=== PATIENT | female | born 1970 | race Caucasian/White ===

== ENCOUNTER 2016-05-11 18:06 | Emergency (ER) | payer MEDICAID ==
[~2016-05-11] VITALS: Ht 162.6 cm; Wt 118.5 kg
[2016-05-11 18:42] VITALS: Ht 162.6 cm; Wt 118.5 kg
[2016-05-11] MEDS ORDERED: KETOROLAC 30 MG INJ IM STA (19:33)
--- NOTE | 2016-05-11 20:03 | ERD ---
ER Documentation Chief Complaint Date/Time DATE: 05/11/16 TIME: 19:59 Chief Complaint LOWER BACK PAIN X 1 DAY S/P BENDING; LAST IBUPROFEN AT 1100 TODAY. HPI Patient is a 46-year-old female who presents to the ED with low back pain that started yesterday. She states that she was bending down to pick something up and felt pain in her low back and spasm going up her back. She denies saddle anesthesia, denies bowel or bladder incontinence. Denies chest pain, cough, shortness of breath or difficulty breathing. Denies abdominal pain, nausea, vomiting or diarrhea. Denies radiation of pain down her legs. Denies neck pain or headache. She has not taken anything for her symptoms. She states that this has happened to her before, about 10 years ago. She denies weakness or difficulty walking. ROS All systems reviewed and are negative except as per history of present illness. Medications Home Meds Active Scripts Orphenadrine Citrate (Norflex) 100 Mg Tablet.sa, 100 MG PO BID for 10 Days, TAB.SA Prov:ELLIOTT ASHBY PA-C 05/11/16 Hydrocodone/Acetaminophen (Lenox 5-325 Tablet) 1 Each Tablet, 1 TAB PO Q6H Y for PAIN, #7 TAB Prov:ELLIOTT ASHBY PA-C 05/11/16 Allergies Allergies: Coded Allergies: No Known Allergy (Unverified , 05/11/16) PMhx/Soc History of Surgery: Yes () Anesthesia Reaction: No Hx Neurological Disorder: Yes ("SLIPPED DISC IN SPINE"; CHRONIC PAIN) Hx Respiratory Disorders: Yes (ASTHMA) Hx Cardiac Disorders: Yes (HTN) Hx Psychiatric Problems: No Hx Miscellaneous Medical Probl: No Hx Alcohol Use: No Hx Substance Use: No Hx Tobacco Use: No Smoking Status: Never smoker Physical Exam Vitals Vital Signs Date Time Temp Pulse Resp B/P Pulse Ox O2 Delivery O2 Flow Rate FiO2 05/11/16 18:42 98.8 71 18 185/86 98 Physical Exam GENERAL: Well-developed, well-nourished female. Appears in mild distress HEAD: Normocephalic, atraumatic. NECK: Supple. No lymphadenopathy or thyromegaly. No meningismus. negative kernig. negative brudinski. LUNG: Clear to auscultation bilaterally. No rhonchi, wheezing, rales or coarse breath sounds. HEART: Regular rate and rhythm. No murmurs, rubs or gallops. BACK: Tenderness to spinal and paraspinal muscles of low back pain. no step- offs, deformities, erythema or signs of infection. Extremities: Equal pulses bilaterally. No peripheral clubbing, cyanosis or edema. No unilateral leg swelling. NEUROLOGIC: Alert and oriented. Moving all four extremities. 5/5 strength in all extremities. Normal speech. Steady gait. SKIN: Normal color. Warm and dry. No rashes or lesions. Capillary refill < 2 seconds Results 24 hrs Current Medications Medications (Trade) Dose Ordered Sig/Niraj Route PRN Reason Start Time Stop Time Status Last Admin Dose Admin Ketorolac Tromethamine (Toradol) 30 mg ONCE STAT IM 05/11/16 19:33 05/11/16 19:36 DC 05/11/16 19:49 Procedures/MDM ER COURSE: I kept the patient and/or family informed of laboratory and diagnostic imaging results throughout the emergency room course. EKG, MONITORS, & DIAGNOSTIC IMAGING: [place] [id number] Radiology Main Line: [phone] DIAGNOSTIC IMAGING REPORT Patient: BRUCE SOUNA : 1970 Age: 46 Sex: F MR #: [id number] DOS: 05/11/161935 Ordering MD: ELLIOTT ASHBY PA-C Location: [facility] Room/Bed: PROCEDURE: XR Lumbar Spine. CLINICAL INDICATION: Low back pain. TECHNIQUE: 3 views of the lumbar spine are available for review COMPARISON: None available FINDINGS: The normal lumbar lordosis is preserved. Alignment is intact. No acute fracture or dislocation is seen. No radiopaque foreign body is identified. The vertebral body heights are all normal. The intervertebral disk heights are unremarkable. There is minimal osteophyte formation along the endplates with minimal facet arthropathy posteriorly. Paraspinous soft tissues are grossly unremarkable. IMPRESSION: 1. Very mild diffuse lumbar vertebral spondylosis. 2. No acute fracture or subluxation identified. RPTAT: [facility] Physician Claritza Date Time Electronically viewed and signed by Physician Claritza on 05/11/2016 21: 10 JH/ CC: ELLIOTT ASHBY PA-C MEDICATIONS: Toradol 30 mg. Patient tolerated medication well with no adverse reaction. Seen improvement in symptoms. Urine test was negative. MEDICAL DECISION MAKING: This is a 46-year-old female who presents with low back pain. Vital signs were reviewed. Patient is afebrile. Patient is not hypoxic. Patient likely has a muscle strain versus muscle spasm. Low suspicion for cauda equine syndrome, spinal epidural hematoma, spinal epidural abscess, osteomyelitis, fracture, aortic dissection, AAA, pyelonephritis, nephrolithiasis, septic stone, obstructed stone. Low suspicion for ACS, PE, AAA, dissection, DVT Low suspicion for pneumonia, PE, pneumothorax, ACS, epiglottitis, obstruction, TB, pertussis, meningitis, sepsis. DISCHARGE: At this time, patient is stable for discharge and outpatient management with no new complaints during the ER course. Patient was sent home with Efe Lorenzo. Patient will be discharged home with instructions to recheck for new or worsening symptoms such as fever, nausea, weakness, LOC and to follow up with primary care in the next 1-2 days. Patient was advised to return to the ER for any new or worsening symptoms. Plan was discussed and patient and/or family understands and agrees. Home instructions were given. Departure Diagnosis: Primary Impression: Back pain Back pain location: low back pain Chronicity: unspecified Back pain laterality: bilateral Sciatica presence: without sciatica Qualified Code: M54.5 - Bilateral low back pain without sciatica, unspecified chronicity Condition: Stable ELLIOTT ASHBY PA-C May 11, 2016 20:03
--- NOTE | 2016-05-11 21:10 | RADRPT ---
PROCEDURE: XR Lumbar Spine. CLINICAL INDICATION: Low back pain. TECHNIQUE: 3 views of the lumbar spine are available for review COMPARISON: None available FINDINGS: The normal lumbar lordosis is preserved. Alignment is intact. No acute fracture or dislocation is seen. No radiopaque foreign body is identified. The vertebral body heights are all normal. The intervertebral disk heights are unremarkable. There is minimal osteophyte formation along the endplates with minimal facet arthropathy posteriorly . Paraspinous soft tissues are grossly unremarkable. IMPRESSION: 1. Very mild diffuse lumbar vertebral spondylosis. 2. No acute fracture or subluxation identified. RPTAT: [facility] Physician Claritza Date Time Electronically viewed and signed by Physician Claritza on 05/11/2016 21:10 /
[2016-05-11] MEDS ORDERED: HYDR-906 PO (21:14)
[2016-05-11] MEDS ORDERED: ORPH100T PO (21:14)
[2016-05-11 21:24] VITALS: BP 165/85; PULSE 65; RESP 18; TEMP 98.8
== END 2016-05-11 21:27 | disposition home or self-care (01) ==
LOC: FTE 18:06
DX: S39.92XA Unspecified injury of lower back, initial encounter (principal); I10 Essential (primary) hypertension; J45.909 Unspecified asthma, uncomplicated; X50.1XXA Overexertion from prolonged static or awkward postures, initial encounter; Y92.9 Unspecified place or not applicable
CPT/HCPCS: 72100; 96372; J1885; Z7502